=== PATIENT | male | born 2000 | race Caucasian/White ===

== ENCOUNTER 2025-04-21 17:47 | Emergency (ER) | payer BC, SELFPAY ==
--- OUTSIDE RECORDS SUMMARY | 2019-05-08 14:58 | XMS_ITS | Continuity of Care Document ---
Author Organization [facility] Address [address] [place] [address] Care Team Providers Care Addictions Therapist Name Role Phone Gustavo Garcia OD Unavailable Unavailable Allergies, Adverse Reactions, Alerts Substance Reaction Status Criticality Penicillins Active No Information Medications Medication Instructions Dosage Effective Dates (start - stop) Status Comments SERTRALINE HCL (unknown strength) take 1 tablet by oral route every day Not Available - Active RISPERDAL (unknown strength) take 2 tablet by oral route 2 times every day Not Available - Active IBUPROFEN (unknown strength) take 1 capsule by oral route every 6 hours as needed Not Available - Active BACLOFEN (unknown strength) take 1 tablet by oral route 3 times every day Not Available - Active Advance Directives Directive Yes / No Effective Date File Name Life Support Not Answered N/A N/A Other Directive No N/A N/A WARNING:The information contained in this section is historical and is provided for information only and does not constitute a legal document or any assurance that the information is still accurate. Please verify the information with the pathak of the legal document before using it for clinical purposes. Encounters Encounter Description Practice Location Reason(s) For Visit Diagnoses Date Provider Providers Copied on Encounter [address] [place] [address], [address], [place], [place], [id number], [facility] No Information 9 Jose Chen. [address] [facility], [address], [place], [place], [id number], . tel:[phone] Family History Family Member Type Diagnosis Age At Onset No Information Payers Payer name Insurance type Covered libertarian ID Authoriza tion(s) No Information Social History Type Description Quantity Date Captured Comments Alcohol Use Details Unknown Caffeine Use Details Unknown Tobacco Use Status No Information Smoking Status No Information Sex Female Chief Complaint And Reason For Visit No Information Reason For Referral Reason For Referral No Information History Of Present Illness Encounter Date Complaint History Of Prese nt Illness No Information Functional Status Date Functional Assessmen t No Information Instructions Date Instruction Additional Infor mation No Information Assessments Type Assessment Date No Information Patient Care Teams Name Effective Dates (start - stop) Status Members No Information
--- OUTSIDE RECORDS SUMMARY | 2024-01-16 06:15 | XMS_ITS ---
Author Organization [facility] in [place] Address [address] [place] [address] Care Team Providers Care Financial Reserve Clerk Name Role Phone Afsaneh Romero Primary Care Provider Kishor Foote [facility] [phone] REASON FOR VISIT Plan of care per Paige Encounters Encounter Location Date Provider Diagnosis [facility] [address] [place] [address] 01/16/2024 Kishor Dorantes Plan Of Treatment No Information Progress Notes * Hussain GIBBS ADOB: 0 (25 yo M)Acc No.[id number]:01/16/2024 UNLOCKED PROGRESS NOTE Progress Note Patient: Agustín COELLO Hussain João Provider: Cynthia Dorantes MD :2000 A ge:23 Y S ex:Male Date:01/16/2024 Address:[address] [place], [place] [id number] Pcp:ANALI Zamora Subjective: * Chief Complaints: * 1 . Plan of care per Paige. * Medical History: Objective: * Vitals: Assessment: Plan: * Treatment: * * Electronic signature of Sánchez Dorantes MD, [id number] on 04/21/2025 at 06:27 PM EDT Sign off status: Pending Visit Status: R /S (Rescheduled) * Provider: Cynthia Dorantes MD Date: 0 01/16/2024 Generated for Printi ng/Faxing/eTransmitting on: 0 04/21/2025 06:27 PM EDT
--- OUTSIDE RECORDS SUMMARY | 2024-01-27 05:45 | XMS_ITS ---
Author Organization [facility] in [place] Address [address] [address] Care Team Providers Care Software Design Engineer Name Role Phone Afsaneh Romero Primary Care Provider Kishor Foote Unavailable [phone] REASON FOR VISIT 2 week follow up Encounters Encounter Location Date Provider Diagnosis [facility] [address] [place] [address] 01/27/2024 Kishor Dorantes Plan Of Treatment No Information Progress Notes * Hussain GIBBS ADOB: 0 (25 yo M)Acc No.[id number]:01/27/2024 UNLOCKED PROGRESS NOTE Progress Note Patient: Agustín COELLO Hussain João Provider: Cynthia Dorantes MD :2000 A ge:23 Y S ex:Male Date:01/27/2024 Address:[address] [place], [place] [id number] Pcp:ANALI Zamora Subjective: * Chief Complaints: * 1 . 2 week follow up. * Medical History: Objective: * Vitals: Assessment: Plan: * Treatment: * * Electronic signature of Sánchez Dorantes MD, [id number] on 04/21/2025 at 06:27 PM EDT Sign off status: Pending Visit Status: N /S N/C (No Show/No Charge) * Provider: Cynthia Dorantes MD Date: 01/27/2024 Generated for Printi ng/Faxing/eTransmitting on: 0 04/21/2025 06:27 PM EDT
[2025-04-21 17:50] VITALS: BP 120/83; PULSE 87; TEMP 36.7; O2SAT 96; BMI 28.2
--- NOTE | 2025-04-21 18:24 | ED.GENADUL1 ---
HPI HPI - General Adult General Chief complaint: Upper Respiratory Infection Stated complaint: CHEST COLD Time Seen by Provider: 04/21/25 17:52 Source: patient Mode of arrival: ambulance Limitations: physical limitation Limitations comment: pt in wheelchair History of Present Illness HPI narrative: Patient is a 25-year-old male that presents today via EMS for evaluation of his cough. Patient states that he was having difficulty with his friend who dropped him off and left him at a truck stop. He states that he has this cough has been going on for about 4 to 5 days. He usually gets an upper respiratory infection this time of the year. He states he does not feel sick and he feels fine. Denies chest pain or shortness of breath. Denies any fevers, bodies, chills. Denies any nausea, vomit, abdominal pain. He does not want worked up for this and states he would just like to go home. Related Data Home Medications ?Medication ?Instructions ?Recorded ?Confirmed No Known Home Medications 04/21/25 04/21/25 Allergies Allergy/AdvReac Type Severity Reaction Status Date / Time Penicillins Allergy Severe Anaphylaxis Verified 04/21/25 17:50 Review of Systems ROS Status of ROS 10 or more systems reviewed and unremarkable except as noted in history and below Respiratory Reports: cough PFSH PFSH Social History Little interest or pleasure in doing things: not at all Feeling down, depressed, or hopeless: not at all Exam Narrative Exam Narrative: Vitals: I have reviewed the vitals and nursing triage assessment. General: Nontoxic appearing, no acute distress. Skin: Warm, dry, no pallor. No appreciable rash. Eyes: PERRLA, EOMI. Normal conjunctiva ENT: No posterior pharyngeal erythema or edema. Moist mucous membranes. TMs unremarkable. Canals clear. Neck: No meningeal signs. Cardio: Regular rate and rhythm. Respiratory: CTA to bilateral lung stauffer. No obvious respiratory distress. Abdomen: Abdomen is soft, nontender, with no evidence of guarding, rebounding, or rigidity Musculoskeletal: Normal ROM, no deformity, no swelling Neurologic: A&O, moves all extremities in equal strength and symmetry. Constitutional Vital Signs, click to edit/add: Last Vital Signs Temp 98.1 F 04/21/25 17:50 Pulse 87 04/21/25 17:50 Resp 18 04/21/25 17:50 BP 120/83 04/21/25 17:50 Pulse Ox 96 04/21/25 17:50 O2 Del Method Room Air 04/21/25 17:50 Course Vital Signs Vital signs: Vital Signs Temperature 98.1 F 04/21/25 17:50 Pulse Rate 87 04/21/25 17:50 Respiratory Rate 18 04/21/25 17:50 Blood Pressure 120/83 04/21/25 17:50 Pulse Oximetry 96 04/21/25 17:50 Oxygen Delivery Method Room Air 04/21/25 17:50 Temperature 98.1 F 04/21/25 17:50 Pulse Rate 87 04/21/25 17:50 Respiratory Rate 18 04/21/25 17:50 Blood Pressure 120/83 04/21/25 17:50 Pulse Oximetry 96 04/21/25 17:50 Oxygen Delivery Method Room Air 04/21/25 17:50 Medical Decision Making MDM Narrative Medical decision making narrative: Patient is a 25-year-old male who presents today via EMS for evaluation of his cough. He was left at a truck stop by a friend and has been dealing with a cough for about 4 to 5 days. States he gets sick once a year around this time states that he has not been worked up for this and just wants to go home. On exam patient is afebrile and nontoxic appearing. CTA to bilateral lung stauffer. RRR. Abdomen soft nontender. No posterior pharyngeal erythema or edema. TMs unremarkable bilaterally. Offered chest x-ray and swabs for the patient given likely viral URI with cough. Patient denies and does not want either of these things done. He would like to be discharged home with using [id number] medication at this time which I do find reasonable given he is nontoxic-appearing. He will be discharged home with close follow-up with his PCP. We discussed if he has new or worsening symptoms that he should promptly return to the ED for evaluation. Discharge Plan Discharge Chief Complaint: Upper Respiratory Infection Clinical Impression: Upper respiratory infection Qualifiers: URI type: unspecified viral URI Qualified Code(s): J06.9 - Acute upper respiratory infection, unspecified Patient Disposition: Home, Self-Care Time of Disposition Decision: 18:21 Condition: Good Mode of Transportation: Private Vehicle Prescriptions / Home Meds: No Action No Known Home Medications Print Language: Latvian Instructions: Upper Respiratory Infection (ED) Additional Instructions: Please call your primary care office back in [place] for close outpatient follow-up regarding your upper respiratory infection. Continue with [id number] medication for symptomatic management at this time. Return to ED if symptoms worsen or new symptoms arise.
--- OUTSIDE RECORDS SUMMARY | 2025-04-21 18:27 | XMS_ITS | Patient Health Record ---
Author Organization [facility] in [place] Address [address] [place] [address] Care Team Providers Care Crane Mechanic Name Role Phone Forbandar ANALIAfsaneh Primary Care Provider Unavail able Allergies Allergen (clinical drug ingredient) Drug/Non Drug Allergy documented on EMR Reaction Allergy Type Onset Date Status penicillin V Penicillin V Potassium hives Drug Allergy Active Reason For Referral No Information Medications Medication SIG (Take, Route, Frequency, Duration) Notes Start Date End Date Status Albuterol Sulfate 108 (90 Base) MCG/ACT as directed Inhalation Active Tylenol 325 MG 2 tablet as needed Orally every 4 hrs Active HYDROcodone-Acetamino phen 5-325 MG 1 tablet as needed Orally BID; Duration: 30 days Ok to fill today 03/10/2024 Active Social History Tobacco Use: Social History Observation Description Date Details (start date - stop date) Current Smoker NA - NA Tobacco Use/Smoking Question Answer Notes Patient is a former smoker When did you stop smoking? 06/19/2018 How long has it been since you last smoked? 6-12 months Tobacco Control (Standard) Question Answer Notes Tobacco use: Current smoker How many cigarettes a day do you smoke? 6-10 Problems Problem Type SNOMED Code ICD Code Onset Dates Problem Status W/U Status Risk Notes Problem Cerebral palsy (635120150) Cerebral palsy, unspecified (G80.9) Active confirmed Problem Chronic pain (27229065) Other chronic pain (G89.29) Active confirmed Problem Anxiety (67828656) Anxiety (F41.9) Active confirmed Problem Constipation (37278236) Constipation, unspecified constipation type (K59.00) Active confirmed Problem Agitation (45246331) Agitation (R45.1) Active confirmed Problem Bipolar disorder (27283100) Bipolar affective disorder, remission status unspecified (F31.9) Active confirmed Problem Impulse control disorder (22484663) Impulse control disorder (F63.9) Active confirmed Problem Cerebral palsy (523382845) Cerebral palsy, unspecified type (G80.9) Active confirmed Problem Major depression, single episode (26028194) Major depressive disorder, remission status unspecified, unspecified whether recurrent (F32.9) Active confirmed Plan Of Treatment Pending Test Test Name Order Date XR Foot LT (3 views) * 01/13/2024 XR Foot RT (3 views) * 01/13/2024 Insurance Providers Payer Name Payer Address Payer Phone Subscriber Number Group Number Insured Name Patient Relationship to Insured Coverage Start Date Coverage End Date [employer] [place] [employer] [address] [address] [place] [address] [id number] Sai Hussain Self - patient is the insured 4 Medical (General) History Medical History History ICD Code Other acne L70.8 Intermittent asthma without complication , unspecified asthma severity J45.20 Cerebral palsy, unspecified type G80.9 Major depressive disorder, r emission status unspecified, unspecified whether recurrent F32.9 Enuresis R32 Impulse control disorder F63.9 Paraplegia G82.20 Bipolar affective disorder, remission st atus unspecified F31.9 Post-traumatic stress disorder F43.10 Constipation, unspecified constipation t ype K59.00 Suicidal ideation R45.851 Homicidal ideation R45.850 Aggression R46.89 History of suicide attempt Z91.5 Surgical History Surgery Date(Month/Year) EGD with bx leg surgery eye muscle surgery (as an infant) colonoscopy 2016 with bx abdominal sx bilat foot surgery Hospitalization History Reason Date(Month/Year) ER-Cold 02/2024 Leg pain 11/2023 [place] 01/2019 see above
== END 2025-04-21 18:34 | disposition home or self-care (01) ==
LOC: ER 18:24
PROVIDERS: Emergency Provider Emergency Medicine
DX: J06.9 Acute upper respiratory infection, unspecified (principal)
CPT/HCPCS: 99281